=== PATIENT | male | born 1990 | race Caucasian/White ===

== ENCOUNTER 2020-06-01 16:50 | Emergency (ER) | payer SELFPAY ==
[~2020-06-01] VITALS: Ht 175.3 cm; Wt 78.1 kg
[2020-06-01 17:05] VITALS: BP 122/57
--- NOTE | 2020-06-01 17:34 | PHYS DOC ---
Past Medical History Past Medical History: No Pertinent History Past Surgical History: No Surgical History Smoking Status: Current Every Day Smoker Alcohol Use: None General Adult EDM: Chief Complaint: EYE PROBLEMS HPI: HPI: Patient is a 30 year old male who presents the ED today to be evaluated for piece of metal in his right eye. Patient states he was working with a angled flute grinder cutting and a piece of metal flew into his right eye. Patient denies a ny vision loss. Review of Systems: Review of Systems: Constitutional: Denies fever or chills. [] Eyes: Reports a piece of metal in the right eye. Denies change in visual acuity. [] Musculoskeletal: Denies back pain or joint pain. [] Integument: Denies rash. [] Neurologic: Denies headache, focal weakness or sensory changes. [] Psychiatric: Denies depression or anxiety. [] Heart Score: Risk Factors: Risk Factors: DM, Current or recent (<one month) smoker, HTN, HLP, family history of CAD, obesity. Risk Scores: Score 0 - 3: 2.5% MACE over next 6 weeks - Discharge Home Score 4 - 6: 20.3% MACE over next 6 weeks - Admit for Clinical Observation Score 7 - 10: 72.7% MACE over next 6 weeks - Early Invasive Strategies Physical Exam: PE: Constitutional: Well developed, well nourished, no acute distress, non-toxic appearance. [] Eyes: PERRLA, EOMI, right eye at approximately 1600 position with an obvious tiny rust ring MD in today cornea. Skin: Warm, dry, no erythema, no rash. [] Back: No tenderness, no CVA tenderness. [] Extremities: No tenderness, no cyanosis, no clubbing, ROM intact, no edema. [] Neurologic: Alert and oriented X 3, normal motor function, normal sensory function, no focal deficits noted. [] Psychologic: Affect normal, judgement normal, mood normal. [] EKG: EKG: [] Radiology/Procedures: Radiology/Procedures: [] Course & Med Decision Making: Course & Med Decision Making Pertinent Labs and Imaging studies reviewed. (See chart for details) This is a 30-year-old male patient who presents the ED today to be evaluated for piece of metal that is embed in his right eye, this occurred 4 days ago while he was working with an angled flute grinder. I recommended following up with an filleter considering the length of time this piece of metal has been in the eye.. He refused tetanus shot. Priya Disclaimer: Priya Disclaimer: This electronic medical record was generated, in whole or in part, using a voice recognition dictation system. Departure Departure Impression: Primary Impression: Corneal rust ring of right eye Disposition: HOME, SELF-CARE Condition: STABLE Referrals: NO PCP (PCP) PEDRO ZAMORANO MD Please call the provided filleter and follow-up tomorrow morning Patient Instructions: Eye - Foreign Body Additional Instructions: Please call the provided eye doctor and follow up with him tomorrow. Justicifation of Admission Dx: Justifications for Admission: Justification of Admission Dx: N/A SHARIFA RODRIGUEZ PICKER / PACKER Jun 01, 2020 17:34
== END 2020-06-01 17:38 | disposition home or self-care (01) ==
LOC: ER 16:50
DX: T15.01XA Foreign body in cornea, right eye, initial encounter (principal); F17.200 Nicotine dependence, unspecified, uncomplicated; Y29.XXXA Contact with blunt object, undetermined intent, initial encounter; Y93.89 Activity, other specified; Y92.89 Other specified places as the place of occurrence of the external cause; Y99.8 Other external cause status
CPT/HCPCS: 99281